=== PATIENT | male | born 1975 | race Two or more races ===

== ENCOUNTER → 2016-09-23 | Outpatient (REF) | payer OTHER | LOC: M SFHCLERA 16:08 | PROVIDERS: ATTEND Nurse Practitioner Family | DX: R19.7 Diarrhea, unspecified (principal) ==

== ENCOUNTER → 2018-04-27 | Outpatient (REF) | payer OTHER | LOC: M SFHCLERA 16:28 | PROVIDERS: ATTEND Physician Assistant | DX: L02.519 Cutaneous abscess of unspecified hand (principal) ==